=== PATIENT | male | born 1945 | race Caucasian/White ===

== ENCOUNTER 2016-02-29 08:41 | Day surgery (SDC) | payer OTHER, MEDICARE ==
[2016-02-27 12:03] VITALS: BMI 29.9
[2016-02-29] MEDS ORDERED: oxyCODONE HCL 5 MG TABLET PO PRN (12:23)
[2016-02-29] MEDS ORDERED: ONDANSETRON 4 MG/2 ML VIAL IVPUSH PRN (12:23)
[2016-02-29] MEDS ORDERED: LACTATED RINGERS SOLUTION 1,000 ML IV SCH (12:30)
[2016-02-29] MEDS ORDERED: MIDAZOLAM HCL 2 MG/2 ML SINGLE DOSE VIAL ONE (12:33)
[2016-02-29] MEDS ORDERED: BUPIVACAINE HCL/PF 2.5 MG/ML - 30 ML VIAL IJ ONE (12:34)
[2016-02-29] MEDS ORDERED: LIDOCAINE HCL 1%, 10 MG/ML (20ML VIAL) ONE (12:49)
[2016-02-29] MEDS ORDERED: methylPREDNISolone ACET (DEPO) 40 MG/1 ML VIAL ONE (12:49)
[2016-02-29] MEDS ORDERED: PROPOFOL 20 ML ONE ×9 (12:53→13:40)
[2016-02-29] MEDS ORDERED: KETOROLAC TROMETHAMINE 30 MG/1 ML VIAL ONE (13:29)
[2016-02-29] MEDS ORDERED: BUPIVACAINE HCL/PF 0.25% (2.5MG/ML) 10 ML VIAL IJ ONE (13:46)
[2016-02-29 15:57] VITALS: TEMP 97.6
[2016-02-29 17:07] VITALS: BP 134/68; PULSE 66
--- NOTE | 2016-03-02 00:36 | OP ---
DATE OF OPERATION: 02/29/2016 SURGEON: Genie Johnson MD PAWN SHOP KEEPER: TRINI Stephen PREOPERATIVE DIAGNOSES: 1. Left knee medial and lateral meniscal tear. 2. Left knee cartilage injury. 3. Left knee synovitis. POSTOPERATIVE DIAGNOSES: 1. Left knee medial and lateral meniscal tear. 2. Left knee cartilage injury. 3. Left knee synovitis. PROCEDURE: 1. Left knee arthroscopy with partial meniscectomy of medial and lateral meniscus. 2. Left knee arthroscopy with chondroplasty and abrasion-plasty. 3. Left knee arthroscopy with synovectomy- major. CPT code: 26527, 85413, 27063. FINDINGS: 1. Medial meniscus body and posterior horn tear. 2. Lateral meniscus anterior one-third tear. 3. Synovitis of patellofemoral and medial and lateral notch area. 4. Extensive grade 2-4 cartilage injury of medial femoral condyle and tibial plateau. 5. ACL and PCL intact. 5. Anterior grade 1-2 cartilage injury of the lateral tibial plateau. 6. Extensive grade 2-4 cartilage injury of the patellofemoral trochlea and patellofemoral joint. DESCRIPTION OF PROCEDURE: Informed consent was obtained. The patient was taken to the operating room where the left lower extremity was prepped and draped in a sterile fashion. A tourniquet was placed on the left upper thigh but not inflated. Using standard arthroscopic technique, a lateral incision and portal were made which allowed for introduction of the camera into the suprapatellar bursa. This was then taken to the medial joint line where under direct visualization, a medial incision and portal were made. Excessive synovium noted in the medial, lateral, patellofemoral and notch area was removed by the up-biting shaver and Bovie cautery. This was found to bring inflammatory tissue into the joint surface, a source of joint pain and dysfunction. Probing of the medial and lateral meniscus found tears described in the findings. These were removed with an up-biting shaver and taken back to a stable rim. Grade 2-3 degenerative changes were treated with chondroplasty, removing all flaking surfaces with low setting Bovie used along the periphery. Grade 4 changes were treated with abrasion-plasty. All areas of the knee were once again re-examined. The knee was then drained. A single suture was placed on all portals. Sterile dressing was placed. The patient was transferred to the recovery room. GENIE JOHNSON M.D. [id number]
--- NOTE | 2016-03-04 13:46 | PATH ---
Surgical Pathology Report Patient Name: GENIE MCGOVERN Med. Rec. #: [id number] /Age/Gender: 1945 (Age: 71) / M Account: [id number] Location: [facility] AMBULATORY Taken: 02/29/2016 Received: 02/29/2016 Reported: 03/04/2016 Physicians: Genie Craig M.D. Specimen(s) Received LEFT KNEE SHAVINGS Clinical History Internal derangement medial lateral meniscal tear left Final Diagnosis KNEE, LEFT, ARTHROSCOPIC SHAVING: FIBROCARTILAGE WITH MYXOID DEGENERATIVE CHANGES, ALONG WITH PORTIONS OF SYNOVIUM AND HYALINE CARTILAGE. Electronically Signed Manuel Isbell M.D. Gross Description Received in formalin, labeled "left knee shavings," is a 3.5 x 3.0 x 0.2 cm. aggregate of doyle-yellow soft tissue fragments. A environmental marketing representative portion is submitted in one cassette. /03/03/201603/03/2016
== END 2016-02-29 16:30 | disposition home or self-care (01) ==
LOC: FASU 08:41
PROVIDERS: ATTEND Orthopaedic Surgery
PROC: 0SBD4ZZ Excision of Left Knee Joint, Percutaneous Endoscopic Approach (ICD-10-PCS; 2016-02-29)
PROC: 0SBD4ZZ Excision of Left Knee Joint, Percutaneous Endoscopic Approach (ICD-10-PCS; 2016-02-29)
PROC: 0SBD4ZZ Excision of Left Knee Joint, Percutaneous Endoscopic Approach (ICD-10-PCS; principal; 2016-02-29 10:30)
DX: S83.242A Other tear of medial meniscus, current injury, left knee, initial encounter (principal); S83.282A Other tear of lateral meniscus, current injury, left knee, initial encounter; S83.8X2A Sprain of other specified parts of left knee, initial encounter; M65.862 Other synovitis and tenosynovitis, left lower leg; X58.XXXA Exposure to other specified factors, initial encounter; Y93.9 Activity, unspecified; Y92.9 Unspecified place or not applicable
CPT/HCPCS: 88304-TC; 94760